=== PATIENT | male | born 1950 | race Caucasian/White ===

== ENCOUNTER 2022-05-13 09:24 | Day surgery (SDC) | payer MEDICARE, OTHER ==
[~2022-05-13] VITALS: Ht 167.6 cm; Wt 79.5 kg
[~2022-05-13 09:24] MED LIST: ALBU90OI INH; BACL10 PO; IBUP800 PO; MULVITA PO; OMEP20ER PO
--- NOTE | 2022-05-13 10:37 | NUR ---
Ambulatory in Day Surgery History, Chart, Medications and Allergies reviewed before start of procedure.Patient confirms NPO status and agrees with scheduled surgery. Patient states colon prep results clear.Lungs clear T/O to Auscultation. Patient States Post-Procedure ride home has been arranged WITH
--- NOTE | 2022-05-13 10:38 | NUR ---
REPORT TO SHYLA SIMMONS
--- NOTE | 2022-05-13 10:40 | NUR ---
REPORT FROM JAYNE CORTES RN. PT [id number], ABLE TO REPOSITION SELF IN BED.
--- NOTE | 2022-05-13 11:18 | NUR ---
05/13/22 1118 Helen Ferrell HISTORY, CHART, MEDICATIONS AND ALLERGIES REVIEWED BEFORE START OF PROCEDURE. PATIENT CONFIRMS NPO STATUS AND AGREES WITH SCHEDULED PROCEDURE. 3-LEAD EKG REVIEWED WITH PHYSICIAN PRIOR TO START OF PROCEDURE. MONITOR INTACT WITH CONTINUOUS PULSE OXIMETRY,CAPNOGRAPHY, 3-LEAD EKG, INTERMITTENT BP. SUPPLEMENTAL O2 TO BE TITRATED THROUGHOUT PROCEDURE TO MAINTAIN O2 SATURATION ABOVE 90%. PATIENT DETERMINED TO BE ASA APPROPRIATE FOR PROPOFOL SEDATION PRIOR TO START OF PROCEDURE BY DR. CHAHAL
--- NOTE | 2022-05-13 11:54 | NUR ---
Discharge instructions reviewed with patient. Patient verbalizes understanding. Copy given to patient to take home. PT AT BEDSIDE
--- NOTE | 2022-05-13 12:16 | NUR ---
Discharged via wheelchair to private car for ride home.
== END 2022-05-13 12:10 | disposition home or self-care (01) ==
LOC: ORSCMMR 09:24 → ORD 11:00 → ORSCMMR 11:00
PROVIDERS: Surgery
PROC: 0DJD8ZZ Inspection of Lower Intestinal Tract, Via Natural or Artificial Opening Endoscopic (ICD-10-PCS; principal; 2022-05-13 11:00)
DX: Z12.11 Encounter for screening for malignant neoplasm of colon (principal); Z80.0 Family history of malignant neoplasm of digestive organs; R00.1 Bradycardia, unspecified; K21.9 Gastro-esophageal reflux disease without esophagitis; E78.5 Hyperlipidemia, unspecified; Z95.0 Presence of cardiac pacemaker; Z87.891 Personal history of nicotine dependence; Z79.899 Other long term (current) drug therapy
CPT/HCPCS: J2704; J7120

== ENCOUNTER 2025-09-27 08:40 | Day surgery (SDC) | payer MEDICARE, OTHER ==
[~2025-09-27] VITALS: Ht 167.6 cm; Wt 167.6 kg
[~2025-09-27 08:40] MED LIST changes: +Flomax0.4 MG PO; +ONDA4ODT SL; +Percocet 5-3251 EACH PO; +TIZA4 PO
[2025-09-27 09:28] VITALS: BP 144/83
[2025-09-27] MEDS ORDERED: CeFAZolin Sodium 1000 mg Vial ONE (10:10)
[2025-09-27] MEDS ORDERED: Heparin Sodium 1000 Units/ML 10ML MDV ONE (10:11)
[2025-09-27] MEDS ORDERED: NS 1,000 ML IV ONE ×2 (10:11→10:18)
[2025-09-27] MEDS ORDERED: Midazolam HCl 1MG / ML 2ML Vial ONE (10:17)
[2025-09-27] MEDS ORDERED: FentaNYL Citrate 50 MCG/ML 2 ML Injection ONE (10:17)
[2025-09-27] MEDS ORDERED: CeFAZolin Sodium 2,000 MG VIAL ONE (10:21)
[2025-09-27] MEDS ORDERED: NS 100 ML IV ONE (10:22)
--- NOTE | 2025-09-27 12:00 | NUR ---
PATIENT ARRIVED TO RECOVERY ROOM SITTING UPRIGHT IN RECLINER, CONVERSING APPROPRIATELY WITH SPOUSE. LEFT CHEST DRESSING C/D/I SOFT/TENDER, NO EVIDENCE OF BLEEDING. ICE PACK IN PLACE. VSS ON RA.
[2025-09-27 12:07] VITALS: BP 144/72
[2025-09-27 12:15] VITALS: BP 126/73
[2025-09-27 12:30] VITALS: BP 127/75
--- NOTE | 2025-09-27 12:30 | NUR ---
DISCHARGE INSTRUCTIONS REVIEWED WITH PATIENT INCLUDING PACEMAKER CHECK AND WOUND CHECK. PATIENT TOLERATING PO INTAKE WELL. APTEINT AMBULATING TO RESTROOM WITHOUT DIFFICULTY. NO CHANGES TO HOME MEDICATIONS. VSS ON RA.
[2025-09-27 12:45] VITALS: BP 124/73
--- NOTE | 2025-09-27 13:00 | NUR ---
PATIENT DISCHARGED HOME AT THIS TIME. PIV REMOVED WITHOUT DIFFICULTY. ALL PATIENT BELONGINGS AND PAPERWORK LEFT WITH PATIENT. PATIENT WHEELED TO HOSPITAL ENTRANCE AND SPOUSE ABLE TO PROVIDE TRANSPORTATION HOME.
== END 2025-09-27 13:00 | disposition home or self-care (01) ==
LOC: MHTC 08:40
DX: Z45.010 Encounter for checking and testing of cardiac pacemaker pulse generator [battery] (principal); I49.5 Sick sinus syndrome; R55 Syncope and collapse; E78.5 Hyperlipidemia, unspecified; I47.29 Other ventricular tachycardia; K21.9 Gastro-esophageal reflux disease without esophagitis; Z87.891 Personal history of nicotine dependence; Z79.899 Other long term (current) drug therapy
CPT/HCPCS: 33228; 99152; 99153; C1785; J0690; J1644; J2250; J3010; J7030; J7040